=== PATIENT | male | born 1955 | race Caucasian/White ===

== ENCOUNTER 2019-01-06 17:34 | Inpatient (IN) ==
[2019-01-06] MEDS ORDERED: NS 1,000 ML IV SCH (18:45)
[2019-01-06] MEDS ORDERED: IMODIUM PO PRN (20:56)
[2019-01-06] MEDS ORDERED: NEXIUM IV SCH (21:00)
[2019-01-06] MEDS ORDERED: SODIUM CHLORIDE 0.9% INJ SCH ×2 (21:00→23:00)
[2019-01-06] MEDS ORDERED: LOVENOX SUBQ SCH (21:15)
[2019-01-06] MEDS ORDERED: NS + KCL 20 MEQ 1,000 ML IV SCH (21:15)
--- NOTE | 2019-01-06 21:22 | HISTORY AND PHYSICAL ---
CHIEF COMPLAINT: Abdominal cramps, diarrhea for the last 7 days. HISTORY OF PRESENT ILLNESS: He is a 63-year-old, white gentleman, and was seen in my office on 12/30/2018. The patient was treated with symptomatic treatment. He was waking up from the middle for diarrhea. CBC was normal. BUN, creatinine were high. He came back and his symptoms were not yet better. He is not drinking well. He is very dry. Blood pressure on the low side. White cell count today of 12,000. He had occult blood positive. BUN 37, creatinine 2.2. He is slightly dizzy and basically admitted to the hospital since he has failed with treatment outpatient since 12/30/2018. Basically, admitted to the hospital for: 1. Intravenous fluids. 2. Elevation of white cell count. 3. Heme-positive stools, probably needs a GI evaluation. PAST MEDICAL HISTORY: Metabolic syndrome, hypertension, hyperlipidemia, deafness, hyperuricemia, genu varum deformities, left varicocele, tonsillectomy. MEDICINES: Amitriptyline 50 daily, Bentyl as needed, Vasotec 20 daily, Nexium 40 daily, Flomax 0.4 daily, Viagra as needed. ALLERGIES: Not known. SOCIAL HISTORY: , three kids. Working at [employer]. Lives in [place]. Drinks beer on a daily basis. Smokes and dips occasionally. FAMILY HISTORY: Father at the age of 71, from prostate cancer and stroke. Mom from kidney failure at 70. HEALTH MAINTENANCE: Last physical exam, January 2008. Last colonoscopy, 2011, by Dr. Marx. REVIEW OF SYSTEMS: HEENT: Dry mucous membrane. Slightly dizzy upon standing. No fever. No vision problems. Neck: No neck pain. No goiter or lymphadenopathy. Cardiopulmonary: No chest pain, shortness of breath, PND, orthopnea. Gastrointestinal: Abdominal cramps, diarrhea, heme-positive stools. Genitourinary: History of hesitancy, frequency. No swelling of legs. No joint pain. Neurologic: Dizziness. No focal symptoms. PHYSICAL EXAMINATION: VITAL SIGNS: Afebrile. Vitals are stable. Five feet 11 inches, 200 pounds. HEENT: Very dry. Pupils equal, react to light bilaterally. Hearing aids. NECK: Supple. No lymphadenopathy. CHEST: Bilateral air entry. CARDIOVASCULAR: Heart sounds are regular. GASTROINTESTINAL: Belly is soft. No signs of peritonitis. Heme-positive stools. NEUROLOGIC: No neurological deficits. INVESTIGATIONS: In my office: CBC: White cell count 12, hematocrit 37, platelets are normal. SMA 7: Potassium 5.2, BUN 37, creatinine 2.2. Stool testing was done, heme-positive stools, white cells negative, Clostridium difficile negative. ASSESSMENT AND PLAN: A 63-year-old, white male, with a known history of diarrhea for the last 10 days, associated with elevated white cell count, heme-positive stools, and elevated BUN and creatinine. Plan is hold the Vasotec, IV fluids, and repeat the CBC, BMP, IV Flagyl. Repeat the stool samples. Last colonoscopy by Dr. Marx. Symptomatic treatment and will follow up. cc: Matthew Sultana MD
[2019-01-06] MEDS ORDERED: PROTONIX IV SCH (23:00)
[2019-01-06] MEDS: FLAGYL 500 MG/NS 500 MG/100 ML IVPB IV SCH (23:06)
[2019-01-06] MEDS: NS 1,000 ML IV SCH (23:07)
[2019-01-07] MEDS: FLAGYL 500 MG/NS 500 MG/100 ML IVPB IV SCH ×2 (06:01→13:55)
[2019-01-07 07:31] LABS: BASO# 0.02 X1000 (0.0-0.2); BASO% 0.3 % (0.0-0.8); EOS% 3.8 % (0.0-10.0); HEMATOCRIT 38.9 % (42.0-52.0); HEMOGLOBIN 13.3 g/dL (14.0-18.0); IMM GRAN# 0.03 X1000 (0.0-0.04); IMM GRAN% 0.4 % (0.0-0.5); LYMPH# 1.32 X1000 (1.2-3.4); LYMPH% 16.7 % (20.5-51.1); MCHC 34.2 g/dL (33-37); MCV 87.8 FL (81-99); MONO# 0.79 X1000 (0.11-0.59); MPV 11.2 FL (7.4-10.4); NEUT# 5.43 X1000 (1.4-6.5); NEUT% 68.8 % (42.2-75.2); PLT 217 X1000 (130-400); RBC 4.43 XMIL (4.7-6.1); WBC 7.89 X1000 (4.8-10.8)
[2019-01-07 08:00] LABS: CALCIUM 8.8 mg/dL (8.8-10.2); CREATININE 1.7 mg/dL (0.7-1.2); POTASSIUM 5.2 mmol/L (3.5-5.1)
[2019-01-07] MEDS ORDERED: PRAVACHOL PO SCH (09:00)
[2019-01-07] MEDS ORDERED: HYDROCHLOROTHIAZIDE PO SCH (09:00)
[2019-01-07] MEDS ORDERED: CULTURELLE PO SCH (09:00)
[2019-01-07] MEDS ORDERED: PRISTIQ ER PO SCH (09:00)
[2019-01-07] MEDS ORDERED: KLOR-CON PO SCH ×2 (09:00)
[2019-01-07] MEDS ORDERED: TENORMIN PO SCH (09:00)
--- NOTE | 2019-01-07 10:19 | Diag Imaging Result Doc PS360 ---
EXAM: US RENAL 2 (RETROPER) COMPLETE HISTORY: paul/arf TECHNIQUE: Renal ultrasound COMPARISON: None. FINDINGS: The right kidney measures 9.1 x 3.8 x 4.5 cm. Normal renal echotexture and cortical thickness. No renal stone or hydronephrosis. No renal mass. The left kidney measures 10.1 x 4.8 x 5.4 cm. Normal renal echotexture and cortical thickness. There is a 1.1 cm stone. No renal hydronephrosis. No renal mass. The urinary bladder is distended and appears normal. IMPRESSION: Nonobstructing left renal stone Electronically signed by Husam Light 01/07/2019 10:17 AM
[2019-01-07] MEDS: NS 1,000 ML IV SCH (12:26)
[2019-01-07 18:11] VITALS: BP 133/74
[2019-01-07] MEDS ORDERED: AVODART PO SCH (21:00)
[2019-01-07] MEDS ORDERED: FLOMAX PO SCH (21:00)
--- NOTE | 2019-01-09 11:24 | DISCHARGE SUMMARY ---
ADMISSION DATE: 01/06/2019 DISCHARGE DATE: 01/07/2019 DISCHARGING DIAGNOSIS: Chronic diarrhea for more than 2 weeks, etiology to be determined. SECONDARY DIAGNOSES: 1. Acute kidney injury, creatinine is 2.2. 2. Hyperkalemia due to dehydration. 3. Metabolic syndrome. 4. Hypertension. 5. Hyperlipidemia. 6. Deafness. 7. Hyperuricemia. 8. 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 9. Benign prostatic hypertrophy. BRIEF HISTORY: Please see the H and P that was done on 01/06/2019. In brief, he is a 63-year- old, white gentleman who was seen in my office for more than a 2-week history of intermittent diarrhea associated with heme-positive stools one time. The patient was given Bentyl. He was dehydrated, which was not improving. His baseline creatinine was 1.0. He was not orthostatic. He was extremely dry. HOSPITAL COURSE: 1. The patient definitely had enlarged prostate with postvoid residual urine more than 300 mL. He was on Flomax and added on Avodart. He was advised not to use any decongestants or anticholinergic drugs. He was given Bentyl and along the amitriptyline. 2. For diarrhea, he was given Imodium AD as needed, along with the probiotics. 3. Elevated white cell count. Added on Flagyl. Subsequent cultures were negative for infectious etiology. After hydration, his creatinine came down to 1.7. He is not orthostatic and is postvoid residual urine 160 mL. Rest of the hospital course was uneventful. LABS: CBC: White cell count 7.8, hematocrit 38.9, platelets 217,000. Sodium 133, potassium 5.2, BUN 34, creatinine 1.7. Stool occult blood was negative in the hospital. White cells, none seen. Stool for cultures were negative. DISCHARGE INSTRUCTIONS: 1. Butts diet. 2. Amitriptyline 50 at bedtime, discontinue Bentyl, Imodium as needed, Flomax 0.4 mg daily, Prilosec 20 daily, Avodart 0.5 mg daily, hold the Vasotec for blood pressure medicine, continue on probiotics. 3. Follow up in my office for maintenance care and will do outpatient set up for evaluation of chronic diarrhea, BPH, blood pressure, other problems. cc: MD KAMILA Robin
== END 2019-01-07 20:09 | disposition home or self-care (01) | DRG 815 ==
LOC: DIRADM → OBSVTOIN 17:34 → EDIPHOLD 18:33 → 3N 20:57
PROVIDERS: ADMIT Internal Medicine; ATTEND Internal Medicine